=== PATIENT | male | born 1995 | race Caucasian/White ===

== ENCOUNTER 2019-01-22 23:00 | Emergency (ER) | payer OTHER ==
[~2019-01-22] VITALS: Ht 172.7 cm; Wt 81.6 kg
--- NOTE | 2019-01-22 23:13 | NUR ---
TO LOBBY A/W BED , AMBULATORY
[2019-01-22 23:15] VITALS: BP 118/83
--- NOTE | 2019-01-23 01:50 | NUR ---
PATIENT CALLED FOR BED NO RESPONSE. PATIENT LEFT WITHOUT BEING SEEN BY DR. BRITO. NO FURTHER CARE PROVIDED FOR PATIENT.
--- NOTE | 2019-01-23 01:55 | NUR ---
CALLED FOR THE SECOND TIME NO RESPONSE
--- NOTE | 2019-01-23 02:00 | NUR ---
CALLED FOR THE THIRD TIME NO RESPONSE
== END 2019-01-23 01:50 | disposition left against medical advice (07) ==
LOC: MED 23:00
DX: L53.8 Other specified erythematous conditions (principal); Z53.21 Procedure and treatment not carried out due to patient leaving prior to being seen by health care provider